=== PATIENT | male | born 1955 | race Caucasian/White ===

== ENCOUNTER 2016-04-16 05:19 | Inpatient (IN) | payer OTHER ==
[~2016-04-16] VITALS: Ht 182.9 cm; Wt 63.4 kg
[2016-04-16] VITALS (11 sets, daily range): BP systolic 91–153; BP diastolic 26–80; BMI 19.8; BMI 19.0
--- NOTE | ~2016-04-16 | OP ---
PATIENT NAME: JOSE MARIA GUTIERREZ MEDICAL RECORD: [id number] :53 LOCATION:D.[facility] D.[id number] ADMISSION DATE:04/16/16 SURGEON: WALTER GONZALEZ MD DATE OF OPERATION: 04/16/2016 PREOPERATIVE DIAGNOSIS: Left lung mass. POSTOPERATIVE DIAGNOSIS: Stage IV lung cancer. PROCEDURES: 1. Mediastinoscopy with lymph node sampling of 3 stations, 4R, 4L, level 7. 2. Chest wall biopsy with a stitch granuloma biopsy and manubrial biopsy. 3. Video-assisted thorascopic surgery, left, pleural effusion evacuation with parietal pleural and diaphragmatic biopsy. SURGEON: Walter Gonzalez MD SALES AND SERVICE REPRESENTATIVE: Isaac. ANESTHESIA: General plus thoracic epidural plus local. FLUIDS: Per anesthesia record. ESTIMATED BLOOD LOSS: 25. SPECIMENS: 1. Level 7 lymph node. 2. Level 4R lymph node. 3. Level 4L lymph node. 4. Chest wall stitch granuloma. 5. Manubrial curettage, biopsy. 6. Left pleural fluid, 1100 for cytology. 7. Parietal pleura left biopsy. 8. Left diaphragm studding biopsy. DISPOSITION: Awake to PACU for subsequent ICU evaluation with thoracic epidural. INDICATIONS FOR THE PROCEDURE: Mr. Gutierrez is a 60-year-old gentleman, who was cared for by Dr. Brennan and Dr. Angulo, he was found to have a 5 cm left lung mass. This was biopsied, which was found to be inconclusive. He was subsequently evaluated by Dr. Angulo after having a PET scan where he was found to have a suspicious activity in the left lower lobe as well as in the left perihilar region. He also had a sternal manubrial PET avidity. We saw him at the beginning of the month where we discussed performing a VATS biopsy along with staging him with mediastinal lymph nodes. Given the size of this lesion, I was concerned that he might have metastatic disease and therefore, we talked about stage procedure of a mediastinoscopy with subsequent VATS, wedge resection and/or left lower lobectomy and/or pneumonectomy given the size and location of lesion. His PFTs were acceptable. His cardiac evaluation was cleared by Dr. Oropeza and we agreed to proceed. He held his Plavix so that the thoracic epidural could be placed. I discussed the risks, alternatives and benefits with his and him in presence and we discussed the risks of bleeding, infection, damage to surrounding structures, need for prolonged ventilation, stroke, pneumonia, and and they agreed to proceed. OPERATIVE REPORT [id number] JOSE MARIA GUTIERREZ PROCEDURE IN DETAIL: After positive identification and informed consent was obtained, the patient was taken to the operating room, laid supine on the operating table. Monitoring lines included EKG pad and a blood pressure cuff. A right radial A-line and a left subclavian vein double lumen catheter was placed by anesthesia. A thoracic epidural was placed in the preoperative holding area. A dual lumen tube was used for intubation. Antibiotics were given within 1 hour of incision. The patient was placed in the neck extended position with a roll underneath his cervical spine. Head was tilted to the right. The chest and neck were prepped and draped in standard fashion. A surgical timeout was performed and all members agreed to proceed. A Patel was placed in sterile fashion. We began the procedure by making a 2 cm transverse incision approximately 2 fingerbreadths above the sternal notch. Dissection was afforded down through the soft tissues. Strap muscles were . We then bluntly created a tunnel to the pretracheal fascia. The pretracheal fascia was then entered and a tract was made underneath the innominate down to the marycruz. After this was done, the mediastinoscope was inserted. We had good visualization. As we advanced the scope carefully down to the subcarinal area, we noted that there were bulky lymph nodes in this area. Multiple biopsies were taken. We then looked to the right and at the level of the forearm, multiple biopsies were taken. No significant lymph node tissue was found at the 2R region. We then assessed the left side. No level 2L was found. In the level 2L position, there was a hard fibrotic lymph node mass in that area, which was concerning for metastatic disease. Multiple biopsies were taken. No electrocautery and/or heat were used at any time during the procedure. The esophagus was kept out of harm's way as well as the pulmonary artery. The innominate was felt and kept out of harm's way. After packing the area with 5 minutes with a Ray-Lizzy, we then laid a bed of fibrillar in the area and once we assured hemostasis was there, we closed. Strap muscles were closed with a U-stitch. Deep dermal sutures were closed and then Monocryl and skin glue. Pathology performed frozen section, which showed that the level 7 and 4R lymph nodes were preliminarily negative on frozen section. The 4L was positive. This tentatively placed him at a stage II level. Given a T2b lesion of greater than 5 cm and a positive and N1 lymph node, he was right now a stage II. Therefore, proceed with the VATS evaluation. The patient was then rotated on to the right recumbent position with left side up. Bony prominences were properly padded. The bed was flexed at the hips. Beanbag was activated. Axillary roll was placed. The arm was properly supported along the head. We next prepped and draped in standard fashion from the deltoids to the hip and sternum to the spine. The patient was retimed out. We next entered this chest with a 12-mm trocar at the mid axillary space at the eight intercostal space. The scope was then inserted and we immediately noted that there was a murky pleural effusion concerning for metastatic disease. Next, we surveyed the area and we noted that there were some studding on the posterior parietal pleura as well as the diaphragm. Heart was in view, we did not see any evidence of pericardial lesion. We next placed a 5-mm trocar in the anterior axillary line at the fourth intercostal space and we evacuated the pleural effusion. An 1100 cc of pleural fluid were taken and were sent off to pathology for cytology. We, next, utilizing a grasper, sampled the studding in OPERATIVE REPORT [id number] RODOLFOJOSE MARIA DON the parietal pleura. This was sent off to pathology. We next sampled the studding on the diaphragm and this was sent off to pathology. Utilizing electrocautery, hemostasis was gained in this area. A #28-Korean chest tube was then placed in the area, as this concludes the procedure and given that this was evidence of stage IV disease. Given the fact that he is not symptomatic, short of breath or on oxygen, I did not feel the needed at this time to perform a pleurodesis and delay his ability to get chemotherapy. We will have him see Dr. Franco as well as review of his findings with Dr. Angulo to come up with an oncologic plan for his stage IV lung cancer. The preliminary evaluation was that this was a squamous cell lung cancer. The chest tube was hooked up to suction, the wounds and the 5-mm trocar was closed with a Monocryl and Steri-Strips and dressed accordingly. Mr. Gutierrez was awakened from anesthesia. All sponge, instrument, needle counts were reported to be correct. TRANSINT:[id number] Voice Confirmation ID: [id number] DOCUMENT ID: [id number] WALTER GONZALEZ MD CC: [id number] DICTATION DATE: 04/16/16 1237 DRILLING AND PRODUCTION SUPERINTENDENT: 04/16/16 1536 [facility] IN [place] [id number] [place] [id number]
[~2016-04-16 05:19] MED LIST: ASPIRIN EC81 M1 PO; PLAVIX75 MG PO; PREDNISONE5 MG PO; TYLENOL W/CODEI1 TAB PO; ZANTAC150 MG PO; ZOCOR20 MG PO
[2016-04-16 07:32] LABS: BASOPHILS 0.3 % (0.0-2.0); EOSINOPHILS 0.9 % (0-7); HEMOGLOBIN 13.3 g/dL (13.5-17.5); IMMATURE GRANULOCYTES 0.6 % (0-5); LYMPHOCYTES 13.8 % (15-50); MCH 28.9 pg (26.0-34.0); MCHC 32.4 g/dL (31.0-37.0); MCV 88.9 fL (80.0-100.0); MEAN PLATELET VOLUME 9.6 fL (7.4-10.4); NEUTROPHILS 76.4 % (40-80); PLATELET COUNT 269 10x3/uL (130-400); RBC 4.61 10x6/uL (4.20-6.10); RDW 13.5 % (11.5-14.5); WBC 14.5 10x3/uL (4.8-10.8)
[2016-04-16 07:41] LABS: APTT 28.2 SECONDS (22.8-39.4); INR 0.98 (0.85-1.17); PROTIME 12.8 SECONDS (11.6-15.0)
[2016-04-16 07:44] LABS: CALC OSMOLALITY 279 mosm/kg (275-300); CALCIUM 8.6 mg/dL (8.5-10.1); CARBON DIOXIDE 28.3 mmol/L (21.0-32.0); CHLORIDE - SERUM 104 mmol/L (98-107); CREATININE - SERUM 0.8 mg/dL (0.6-1.3); GLUCOSE 94 mg/dL (74-106); POTASSIUM - SERUM 3.9 mmol/L (3.5-5.1); SODIUM 140 mmol/L (136-145); UREA NITROGEN 15 mg/dL (7-18); eGFR NON AFRICAN AMERICAN > 90 mL/min (90-120)
--- NOTE | 2016-04-16 12:09 | NUR ---
PATIENT HAD MEDIASTINOSCOPY THEN TURNED LATERAL FOR VATS PROCEDURE, ALL AREAS CHECKED FOR IMPINGEMENT SAFETY MEASURES TAKEN PRESSURE POINTS PADDED AND SECURED, DR GONZALEZ PRESENT AND HELPING WITH POSITION, MARIA FERNANDA.
--- NOTE | 2016-04-16 13:06 | NUR ---
HYDRALAZINE GIVEN PER ANESTHESIA, RECORDED TO ANESTHESIA SHEET. B/P: STARTING AT 1303- ARE TAKE NIBP PER DR. VILLARREAL
--- NOTE | 2016-04-16 13:14 | NUR ---
THORASEAL CHAMBER SWITCHED OUT FOR DRY SEAL CHEST TUBE CHAMBER. CHEST TUBE OUTPUT: 175CC AT SWITCH
--- NOTE | 2016-04-16 13:22 | NUR ---
REPORT CALLED TO Antolin TOLEDO RN. TO BE TRANSPORTED VIA BED TO 2306.
--- NOTE | 2016-04-16 13:40 | NUR ---
REC'D VIA BED FROM PACU, LETHARGIC, FALL ASLEEP IN CONVERSATION, O2 VAI RA, SAT 98%, LEFT SC DL, WITH CVP CONNECTED, ZEROED, READING 4, RIGHT RAIDAL PETAR FLUSHED AND ZEROED, NIBP ND PETAR ARE 50 POINTS DIFFERENCE, DISCUSSED DURING REPORT TO USE NIBP, EPIDURAL IN PLACE, DRESSING DRY AND INTACT, LEFT SIDE CHEST TUBE WITH CDI DRESSING, BLOODY DRAINAGE TO TUBING, PLACED TO FULL SUCTION, WISE TO GRAVITY WITH CLEAR YELLOW DRAINAGE TO BAG, SCD'S PLACED B/L, ASSESSMENT COMPLETE PER FLOWSHEET, C/O OF PAIN 10/24, ENCOURATE EPIDURAL OPERATING ROOM REGISTERED NURSE, FAMILY TO BEDSIDE, STATUS UPDATED, VOICES NO NEEDS AT THIS TIME
--- NOTE | 2016-04-16 14:25 | NUR ---
* Is the patient Alert and Oriented? Yes 0 * How many steps to enter\exit or inside your home? 2 0 * PCP DR. WE[facility] IN [facility] 0 * Pharmacy [facility] IN [facility] 0 * Preadmission Environment Home with Family 0 * ADLs Independent 0 * Equipment None 0 * List name and contact numbers for known caregivers / representatives who currently or will assist patient after discharge: SPOUSE: [phone] GRANDDAUGHTER: MARCO HALL [phone] 0 * Community resources currently utilized None 0 * Additional services required to return to the preadmission environment? No 0 * Can the patient safely return to the preadmission environment? Yes 0 * Has this patient been hospitalized within the prior 30 days at any hospital? No PATIENT LIVES AT HOME WITH HIS , TAYLOR. SHE STATES SHE WILL BE AVAILABLE TO DRIVE HIM HOME AT DISCHARGE. PATIENT WAS INDEPENDENT IN ALL ADL'S PRIOR TO ADMISSION. PATIENT'S PCP IS DR. WEST IN [facility]. HE GETS HIS MEDS FROM [facility] IN [place], [place]. PATIENT DOES NOT USE ANY EQUIPMENT. HE HAS NEVER HAD HOME HEALTH CARE. THERE ARE 2 STEPS TO ENTER HIS HOME. NO DISCHARGE NEEDS IDENTIFIED AT THIS TIME.
[2016-04-16 14:29] LABS: BASOPHILS 0.1 % (0.0-2.0); EOSINOPHILS 0.3 % (0-7); HEMATOCRIT 36.3 % (42.0-54.0); HEMOGLOBIN 11.4 g/dL (13.5-17.5); IMMATURE GRANULOCYTES 0.6 % (0-5); LYMPHOCYTES 10.6 % (15-50); MCH 29.1 pg (26.0-34.0); MCHC 31.4 g/dL (31.0-37.0); MCV 92.6 fL (80.0-100.0); MEAN PLATELET VOLUME 10.2 fL (7.4-10.4); MONOCYTES 5.9 % (2-11); NEUTROPHILS 82.5 % (40-80); PLATELET COUNT 187 10x3/uL (130-400); RBC 3.92 10x6/uL (4.20-6.10); RDW 14.2 % (11.5-14.5)
[2016-04-16 14:44] LABS: CALCIUM 8.1 mg/dL (8.5-10.1); CARBON DIOXIDE 28.1 mmol/L (21.0-32.0); MAGNESIUM - SERUM 2.1 mg/dL (1.8-2.4); POTASSIUM - SERUM 4.1 mmol/L (3.5-5.1)
[2016-04-16 14:56] LABS: CREATININE - SERUM 1.4 mg/dL (0.6-1.3)
--- NOTE | 2016-04-16 15:00 | NUR ---
MORE AWAKE, FOLLOWS COMMANDS, VSS, DENIES PAIN AT THIS TIME, VOICES NO NEEDS AT THIS TIME, ASSESSMENT COMPLETE
--- NOTE | 2016-04-16 15:48 | NUR ---
I AND O'S COMPLETED, MORE AWAKE AND ALERT, APPLE JUICE TO BEDSIDE, NO OTHER NEEDS AT THIS TIME
--- NOTE | 2016-04-16 16:35 | NUR ---
DINNER TRAY TO BEDSIDE, ASSIST WITH SET UP, INDEPENDENT WITH EATING
--- NOTE | 2016-04-16 18:00 | NUR ---
FAMILY AT BEDSIDE, STATUS UPDATED, VOICES NO NEEDS AT THIS TIME, PATIENT AWAKE AND CONVERSING WITH , NO NEEDS AT THIS TIME
--- NOTE | 2016-04-16 18:17 | NUR ---
HD BEGAN, VSS, FAMILY AT BEDSIDE, STATUS UPDATED, VOICES NO NEEDS AT THIS TIME
--- NOTE | 2016-04-16 18:37 | NUR ---
VENOUS AND ARTERIAL BLOOD CULTURES DRAWN BY HD NURSE, TAKEN TO LAB FOR EVAL
--- NOTE | 2016-04-16 19:30 | NUR ---
REPORT REC'D AND CARE ASSUMED, REC'D PT RESTING IN BED ON ROOM AIR, AWAKE, ALERT, ORIENTED X 3, AT BS, RIGHT RADIAL PETAR WITH FLEXION BOARD IN USE, NIBP IN USE FOR READINGS, RIGHT FOREARM PIV WITH LR @ 100CC/HR, LDLSCL DRSG CDI, INCISIONS X 2 TO UPPER CHEST, DRSG CDI, LEFT LATERAL CTX 1 TO 20CM H2O SUCTION, NO AIR LEAK NOTED, SANGUINOUS DRAINAGE NOTED, PT ASSISTED TO REPOSITION ONTO RIGHT SIDE, EPIDURAL TAPED SECURELY TO BACK INFUSING @ 6CC/HR WITH 4 Q15 MIN BOLUS, PT RATING PAIN "3" AT THIS TIME, WISE PATENT DRAINING CLEAR YELLOW URINE, SR UP X 2, BED IN LOW POSITION, CALL LIGHT IN REACH.
--- NOTE | 2016-04-16 21:00 | NUR ---
AT BS FOR VISITATION, UPDATE PROVIDED AND QUESTIONS ANSWERED, PT COMPLAINS OF HEAD AND NECK SORENESS, 2ND PILLOW PROVIDED FOR COMFORT, PT RATING PAIN "5" ON 0-10 PAIN SCALE, REMINDED TO USE EPIDURAL BUTTON FOR BREAKTHROUGH PAIN, VERBALIZES UNDERSTANDING.
--- NOTE | 2016-04-16 23:00 | NUR ---
PT RESTING IN BED EYES CLOSED, RESP EVEN AND UNLABORED, VSS, REASSESSMENT COMPLETED, DRSGS REMAIN CDI TO STERNUM AND LEFT LATERAL CT SITE, CT REMAINS WITHOUT AIR LEAK, WILL CONT TO MONITOR FOR CHANGES.
[2016-04-17] VITALS (17 sets, daily range): BP systolic 83–124; BP diastolic 52–71; Ht 182.9 cm; Wt 63.4 kg
--- NOTE | 2016-04-17 01:00 | NUR ---
PT UNCOMFORTABLE IN BED, REPOSITIONED UP AND ONTO LEFT SIDE SUPPORTED WITH PILLOWS, PT DENIES PAIN OR FURTHER NEEDS WILL CONT TO MONITOR FOR CHANGES.
--- NOTE | 2016-04-17 03:30 | NUR ---
PT REPOSITIONED ONTO BACK PER REQUEST, HOB ADJUSTED FOR PT COMFORT
--- NOTE | 2016-04-17 05:30 | NUR ---
PT REPOSITIONE UP AND ONTO RIGHT SIDE SUPPORTED WITH PILLOWS, COFFEE PROVIDED ON REQUEST, PT DENIES FURTHER NEEDS.
--- NOTE | 2016-04-17 06:00 | NUR ---
AT BS UPDATE GIVEN AND QUESTIONS ANSWERED, VSS, PT DENIES NEEDS, CALL LIGHT IN REACH.
[2016-04-17 06:11] LABS: BASOPHILS 0.2 % (0.0-2.0); EOSINOPHILS 0.6 % (0-7); HEMATOCRIT 37.5 % (42.0-54.0); IMMATURE GRANULOCYTES 0.6 % (0-5); LYMPHOCYTES 11.4 % (15-50); MCH 28.3 pg (26.0-34.0); MEAN PLATELET VOLUME 9.4 fL (7.4-10.4); MONOCYTES 8.7 % (2-11); NEUTROPHILS 78.5 % (40-80); RBC 4.24 10x6/uL (4.20-6.10); RDW 13.8 % (11.5-14.5); WBC 16.2 10x3/uL (4.8-10.8)
[2016-04-17 06:16] LABS: MCV 88.4 fL (80.0-100.0); PLATELET COUNT 244 10x3/uL (130-400)
[2016-04-17 06:34] LABS: ALBUMIN 2.3 g/dL (3.4-5.0); ALKALINE PHOSPHATASE 66 U/L (46-116); ALT (SGPT) 19 U/L (10-68); BILIRUBIN - TOTAL 0.38 mg/dL (0.2-1.3); CALCIUM 8.4 mg/dL (8.5-10.1); CARBON DIOXIDE 30.9 mmol/L (21.0-32.0); CHLORIDE - SERUM 102 mmol/L (98-107); POTASSIUM - SERUM 3.5 mmol/L (3.5-5.1); PROTEIN - SERUM 5.6 g/dL (6.4-8.2); SODIUM 137 mmol/L (136-145)
[2016-04-17 06:36] LABS: CALC OSMOLALITY 273 mosm/kg (275-300); CREATININE - SERUM 0.7 mg/dL (0.6-1.3); GLUCOSE 94 mg/dL (74-106); UREA NITROGEN 12 mg/dL (7-18); eGFR NON AFRICAN AMERICAN > 90 mL/min (90-120)
--- NOTE | 2016-04-17 07:15 | NUR ---
REC'D REPORT AND RESUMED CARE, AAO, VSS, ASSESSMENT COMPLETE PER FLOWSHEET, C/O PAIN 04/26, EPIDURAL INTACT, ENCOURAGE USE, AT BEDSIDE, CALL LIGHT IN REACH, NO NEEDS AT THIS TIME
--- NOTE | 2016-04-17 07:30 | NUR ---
NAUSEA WITH REPOSITIONING AND ELEVATING HOB, ZOFRAN 4MG IVP GIVEN PER MAR
--- NOTE | 2016-04-17 09:00 | NUR ---
AM MEDS GIVEN PER MAR, TOLERATED WITHOUT DIFFICULTY
--- NOTE | 2016-04-17 10:00 | NUR ---
DR NAVAS HERE FOR EVAL, STATED PATIENT MAY TRANSFER OUT OF [facility] TODAY
--- NOTE | 2016-04-17 11:00 | NUR ---
SLEEPING WITH NO SIGNS OF DISTRESS, AROUSABLE TO VERBAL STIMULI, FOLLOWS COMMANDS, VSS, ASSESSMENT COMPLETE PER FLOWSHEET, DENIES PAIN, CALL LIGHT IN REACH, NO NEEDS AT THIS TIME
--- NOTE | 2016-04-17 12:00 | NUR ---
AT BEDSIDE, STATUS UPDATED, VOICES NO NEEDS AT THIS TIME
--- NOTE | 2016-04-17 13:54 | NUR ---
DR BRANTLEY HERE FOR EVAL OF EPIDURAL, WILL RECHECK ON 04/18/16
--- NOTE | 2016-04-17 15:15 | NUR ---
PETAR AND RIGHT FORE ARM 20G PIV DC'D WITH CATHETER INTACT, GUAZED DRESSING APPLIED, TOLERATED WITHOUT DIFFICULTY, AT BEDSIDE AWAITING TRANSFER OUT OF ICU
--- NOTE | 2016-04-17 16:15 | NUR ---
I AND O'S COMPLETED, CT DRESSING CHANGE COMPLETED
--- NOTE | 2016-04-17 16:59 | NUR ---
TRANSFERRED TO 2114 VIA BED, PRIMARY NURSE LO @ BEDSIDE, REPORT GIVEN, CT PLACED TO SUCTION, WISE TO GRAIVTY, IVF LR INFUSING AT 50 CC/HR, AWAKE AND ALERT, C/O PAIN IS BACK WITH MOVEMENT, ENCOURAGED USE OF EPIDURAL REFINERY OPERATOR POLYMERIZATION PLANT, CALL LIGHT IN REACH, DINNER TRAY AT BEDSIDE, IN ROOM, STATUS UPDATED, VOICES NO NEEDS AT THIS TIME
--- NOTE | 2016-04-17 17:01 | NUR ---
TRANSFER FROM ICU BY BED. OREINTED TO ROOM. CALL LIGHT IN REACH. WILL CONT. PLAN OF CARE.
--- NOTE | 2016-04-17 19:34 | NUR ---
RESUMED CARE OF PT, LYING IN BED WITH EYES CLOSED RESPIRATIONS EVEN AND UNLABORED ON ROOM AIR. AT BEDSIDE, PLAN OF CARE DISCUSSED. [address] SR ON [address]METRY. LEFT CT TO 20CM SUCTION. LEFT CHEST CVL INFUSING LACTATED RINGERS @ 50. EPIDERAL @ 6CC/HR. CALL LIGHT IN REACH. WILL CONTINUE TO MONITOR. SEE NURSE ASSESSMENT.
[2016-04-18] VITALS: BP 112/59
[2016-04-18 04:00] VITALS: BP 129/66
--- NOTE | 2016-04-18 04:18 | NUR ---
LYING IN BED WITH EYES CLOSED, CALL LIGHT IN REACH. WILL CONTINUE WITH PLAN OF CARE.
--- NOTE | 2016-04-18 06:37 | NUR ---
NO CHANGES FROM PREVIOUS ASSESSMENT, CALL LIGHT IN REACH. SEROUS DRAINAGE TO CHEST TUBE.
[2016-04-18 07:41] VITALS: BP 144/72
--- NOTE | 2016-04-18 09:15 | NUR ---
TELEMETRY SR. IV PATENT. CT INTACT AND PATENT. WILL MONITOR NEEDS.
--- NOTE | 2016-04-18 09:43 | NUR ---
ANESTHESIA AT BS TO DC EPIDURAL. WILL CONT. PLAN OF CARE.
--- NOTE | 2016-04-18 10:33 | NUR ---
NOPRCO 10 ORDERED AND GIVEN FOR INCISIONAL PAIN AT 5. WILL MONITOR.
[2016-04-18 12:05] VITALS: BP 143/81
--- NOTE | 2016-04-18 14:56 | NUR ---
SITTING UP SOB. DRSG CHANGED TO CT SITE. NORCO 10 GIVEN FOR PAIN. WILL CONT. PLAN OF CARE.
[2016-04-18 16:05] VITALS: BP 148/76
--- NOTE | 2016-04-18 19:50 | NUR ---
RESUMED CARE OF PT, LYING IN BED RESPIRATIONS EVEN AND UNLABORED ON ROOM AIR. 83 SR ON TELEMETRY. GENERALIZED PAIN 7:10 NORCO 10 GIVEN FOR PAIN, AT BEDSIDE. LEFT CT TUBE EMPTYING SEROUS FLUID AND HOOKED TO 20CM SUCTION. LEFT DOUBLE LUMEN CVL INFUSING LR @ 50. WISE TO GRAVITY. WILL CONTINUE TO MONITOR. SEE NURSE ASSESSMENT. CALL LIGHT IN REACH.
[2016-04-18 20:00] VITALS: BP 138/78
--- NOTE | 2016-04-18 23:27 | NUR ---
NORCO 10 GIVEN FOR INCISIONAL PAIN
[2016-04-19] VITALS: BP 137/72
--- NOTE | 2016-04-19 02:08 | NUR ---
LYING IN BED WITH EYES CLOSED, CALL LIGHT IN REACH. WILL CONTINUE WITH PLAN OF CARE.
[2016-04-19 04:00] VITALS: BP 131/69
--- NOTE | 2016-04-19 06:38 | NUR ---
NO CHANGES FROM PREVIOUS ASSESSMENT, REMAINS AT BEDSIDE. CALL LIGHT IN REACH.
--- NOTE | 2016-04-19 07:20 | NUR ---
RECEIVED REPORT AT THIS TIME. WILL CONTINUE TO MONITOR AT THIS TIME. WILL CONTINUE PLAN OF CARE. NO OTHER NEEDS AT THIS TIME. WILL CONTINUE TO MONITOR.
[2016-04-19 08:06] VITALS: BP 136/69
--- NOTE | 2016-04-19 09:47 | NUR ---
PT IS ALERT. ASSESSMENT DONE PER FLOWSHEET. NO OTHER NEEDS AT THIS TIME. WILL CONTINUE TO MONITOR.
[2016-04-19 12:00] VITALS: BP 136/62
--- NOTE | 2016-04-19 13:24 | NUR ---
Nutrition Follow Up: Pt was asleep at the time of RD visit. Interview deferred at this time. Noted pt with stage IV Lung Cancer; had mediastinoscopy 04/16/16. Pt is eating 25% meal avg on a Regular diet. I<O. Wt loss 1# since admit. No BM per chart. Meds noted including LR @ 100 ml/hr. Labs noted. Pt with poor po intake at this time. Pt is not meeting est nutritional needs. Rec continue current diet. Will continue to provide selective menus and honor food preferences. Pt may benefit from an appetite stimulant. RD following.
[2016-04-19 16:00] VITALS: BP 103/63
--- NOTE | 2016-04-19 19:33 | NUR ---
RECEIVED CALL FROM RADIOLOGY, SPOKE WITH MARY - SHE STATES THAT PT DOES NOT HAVE ANY PNEUMOTHORAX SEEN ON CXR RECENTLY DONE. PT IS GIVEN DISCHARGE INSTRUCTIONS, NORCO PRESCRIPTION. LEFT CHEST CVL REMOVED, PRESSURE HELD, HEMASTASIS ACHIEVED. DRESSING PLACED AND SECURED WITH OPSITE. PT ADAN WELL. WISE OUT. TELEMETRY REMOVED. OUT TO PERSONAL AUTO VIA WC.
== END 2016-04-19 19:38 | disposition home or self-care (01) | DRG 164 ==
LOC: D.ICU 05:19 → D.SDCHOLD 05:19 → D.ICU 13:08 → D.M2 04-17 16:44
PROVIDERS: Anesthesiology; Surgery; ADMIT Surgery
PROC: 07B74ZX Excision of Thorax Lymphatic, Percutaneous Endoscopic Approach, Diagnostic (ICD-10-PCS; principal; 2016-04-16 08:30)
PROC: 0B9P4ZX Drainage of Left Pleura, Percutaneous Endoscopic Approach, Diagnostic (ICD-10-PCS; principal; 2016-04-16 08:30)
PROC: 0BBP4ZX Excision of Left Pleura, Percutaneous Endoscopic Approach, Diagnostic (ICD-10-PCS; principal; 2016-04-16 08:30)
PROC: [UNRECOGNIZED PROCEDURE] (principal; 2016-04-16 08:30)
DX: C34.32 Malignant neoplasm of lower lobe, left bronchus or lung (principal); C34.02 Malignant neoplasm of left main bronchus; C77.1 Secondary and unspecified malignant neoplasm of intrathoracic lymph nodes; I25.10 Atherosclerotic heart disease of native coronary artery without angina pectoris; Z95.5 Presence of coronary angioplasty implant and graft; Z95.1 Presence of aortocoronary bypass graft; K21.9 Gastro-esophageal reflux disease without esophagitis